=== PATIENT | female | born 1950 | race Caucasian/White ===

== ENCOUNTER 2020-09-15 09:51 | Emergency (ER) | payer OTHER ==
[~2020-09-15] VITALS: Ht 165.1 cm; Wt 58.5 kg
[2020-09-15] MEDS ORDERED: SYNTHROID50 MCG (10:07)
[2020-09-15] MEDS ORDERED: SIMVASTATIN5 MG PO (10:08)
[2020-09-15] MEDS ORDERED: KETO10TA2 PO (11:59)
== END 2020-09-15 12:11 | disposition home or self-care (01) ==
LOC: ER 09:51
DX: M25.561 Pain in right knee (principal); M25.562 Pain in left knee